=== PATIENT | male | born 1995 | race Two or more races ===

== ENCOUNTER 2025-08-05 16:01 | Emergency (ER) | payer OTHER ==
[~2025-08-05] VITALS: Ht 172.7 cm; Wt 83.9 kg
[2025-08-05] MEDS ORDERED: DEXAMETHASONE SODIUM PHOSPHATE 4 MG/ML VIAL IM STA (16:21)
[2025-08-05] MEDS ORDERED: ORPHENADRINE CITRATE 30 MG/ML AMPUL IM STA (16:21)
[2025-08-05] MEDS ORDERED: KETOROLAC TROMETHAMINE 30 MG VIAL IM STA (16:21)
[2025-08-05] MEDS ORDERED: DEXAMETHASONE SODIUM PHOSPHATE 4 MG/ML VIAL ONE (16:50)
[2025-08-05] MEDS ORDERED: ORPHENADRINE CITRATE 30 MG/ML AMPUL ONE (16:50)
[2025-08-05] MEDS ORDERED: KETOROLAC TROMETHAMINE 30 MG VIAL ONE (16:50)
[2025-08-05] MEDS ORDERED: MORPHINE SULFATE 4 MG/ML CARTRIDGE IV ONE (19:00)
[2025-08-05] MEDS ORDERED: PROPOFOL 10,000 MCG/ML VIAL ONE (21:22)
[2025-08-05 21:36] VITALS: BP 129/86; O2SAT 100
[2025-08-05] MEDS ORDERED: PROPOFOL 10 MG/1 ML VIAL 50ML IV ONE (22:30)
[2025-08-05] MEDS ORDERED: PROPOFOL 10,000 MCG/ML VIAL IV PUSH ONE (22:30)
[2025-08-05] MEDS ORDERED: TRAMADOL HCL100 M1 PO (23:41)
[2025-08-06] MEDS ORDERED: TRAM1TAB98 PO (12:42)
== END 2025-08-06 00:12 | disposition home or self-care (01) ==
LOC: ER 16:01
DX: S82.492A Other fracture of shaft of left fibula, initial encounter for closed fracture (principal); W19.XXXA Unspecified fall, initial encounter; Y93.89 Activity, other specified; Y92.89 Other specified places as the place of occurrence of the external cause; Y99.8 Other external cause status

== ENCOUNTER 2025-08-18 09:00 | Day surgery (SDC) | payer OTHER ==
[2025-08-12 14:21] VITALS: BP 125/74
[~2025-08-18] VITALS: Ht 172.7 cm; Wt 83.9 kg
[~2025-08-18 09:00] MED LIST: TRAM1TAB98 PO; TRAMADOL HCL100 M1 PO
[2025-08-18] MEDS ORDERED: BUPIVACAINE HCL 30 ML VIAL IJ ONE (09:45)
[2025-08-18] MEDS ORDERED: CEFAZOLIN SODIUM 2,000 MG in 0.9 % SODIUM CHLORIDE 100 ML IV ONE (09:45)
== END 2025-08-18 16:05 | disposition home or self-care (01) ==
LOC: U 09:00 → CIR.AMB 09:00
PROVIDERS: ATTEND Orthopaedic Surgery
DX: S82.872A Displaced pilon fracture of left tibia, initial encounter for closed fracture (principal); S92.132A Displaced fracture of posterior process of left talus, initial encounter for closed fracture
CPT/HCPCS: 27828; 28445; 20902; L8699